=== PATIENT | female | born 1985 | race American Indian/Alaskan Native ===

== ENCOUNTER 2017-01-16 15:43 | Emergency (ER) | payer OTHER ==
[2017-01-16] MEDS ORDERED: TORADOL IM ONE (18:46)
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
[2017-01-16 20:53] VITALS: BP 133/87
== END 2017-01-16 20:00 | disposition home or self-care (01) ==
LOC: ED 15:43
DX: M79.1 Myalgia (principal); V49.49XA Driver injured in collision with other motor vehicles in traffic accident, initial encounter; Y93.89 Activity, other specified; Y99.9 Unspecified external cause status; Y92.410 Unspecified street and highway as the place of occurrence of the external cause
CPT/HCPCS: 96372; 99282; J1885

== ENCOUNTER 2017-10-02 23:43 | Emergency (ER) | payer OTHER ==
[2017-10-03 01:22] VITALS: BP 121/75
[2017-10-03 02:07] LABS: Bilirubin,Urine NEG (Negative); Blood,Urine NEG (Negative); Color,Urine Yellow (Yellow); Mucus,Urine FEW /HPF; Protein,Urine <15 mg/dL mg/dL (Negative); Urobilinogen,Urine < 2.0 mg/dL (<2.0)
[2017-10-03 02:22] LABS: HCG Qualitative,Urine Negative (Negative)
== END 2017-10-03 03:00 | disposition left against medical advice (07) ==
LOC: ED 23:43
DX: M54.9 Dorsalgia, unspecified (principal); Z53.21 Procedure and treatment not carried out due to patient leaving prior to being seen by health care provider
CPT/HCPCS: 81001; 81025